=== PATIENT | male | born 1975 | race African-American/Black ===

== ENCOUNTER 2017-08-14 12:46 | Emergency (ER) | payer SELFPAY ==
[~2017-08-14] VITALS: Ht 175.3 cm; Wt 104.0 kg
[2017-08-14] MEDS ORDERED: TETANUS, DIPHTHERIA, PERTUSSIS VAC/PF 0.5ML (>7YR OLD) IM ONE (14:15)
[2017-08-14] MEDS ORDERED: HYDROCODONE/ACETAMINOPHEN 5/325MG TABLET PO ONE (14:15)
[2017-08-14] MEDS ORDERED: BACITRACIN ZINC OINT UDPKT TOP ONE (14:15)
[2017-08-14] MEDS ORDERED: KETOROLAC 60MG/2ML VIAL IM ONE (14:15)
[2017-08-14] MEDS ORDERED: MORPHINE SULFATE 10 MG/ML CPJ IV ONE (21:00)
[2017-08-15] MEDS ORDERED: ONDANSETRON HCL 4MG/2ML VIAL IV STA (06:00)
[2017-08-15] MEDS ORDERED: MORPHINE SULFATE 4 MG/ML CPJ (NOT FOR IM USE) IV STA (06:00)
[2017-08-15 09:45] VITALS: BP 135/78
== END 2017-08-15 10:44 | disposition short-term general hospital (02) ==
LOC: ER 14:37
DX: S82.122A Displaced fracture of lateral condyle of left tibia, initial encounter for closed fracture (principal); S82.832A Other fracture of upper and lower end of left fibula, initial encounter for closed fracture; S40.212A Abrasion of left shoulder, initial encounter; S60.512A Abrasion of left hand, initial encounter; S90.512A Abrasion, left ankle, initial encounter; Y93.I9 Activity, other involving external motion; V29.3XXA Motorcycle rider (driver) (passenger) injured in unspecified nontraffic accident, initial encounter; Y92.410 Unspecified street and highway as the place of occurrence of the external cause; F17.210 Nicotine dependence, cigarettes, uncomplicated; K11.5 Sialolithiasis; Z23 Encounter for immunization
CPT/HCPCS: 70450; 71045; 72125; 73562; 73590; 73610; 90471; 90715; 96372; 96374; 96375; 96376; 99284; J1885; J2270; J2405; L1830; Z7610